=== PATIENT | female | born 1995 | race Caucasian/White ===

== ENCOUNTER 2019-09-19 08:44 | Emergency (ER) | payer OTHER ==
[2019-09-19 08:50] VITALS: BP 116/65
--- NOTE | 2019-09-19 09:42 | ER Document Report ---
ED Medical Screen (RME) - General Chief Complaint: Vaginal Bleeding Stated Complaint: VAGINAL BLEEDING Time Seen by Provider: 09/19/19 09:39 - HPI Notes: 09/19/19 09:42 Patient is a 24-year-old female G1, P0 approximately 6 weeks who presents complaining of lower pelvic cramping and vaginal bleeding that has been present for the past 1 to 2 days. No fever, chest pain, vomiting, diarrhea. I have treated and performed a rapid initial assessment of this patient. A comprehensive ED assessment and evaluation of the patient, analysis of test results and completion of medical decision making process will be conducted by additional ED providers. PHYSICAL EXAMINATION: GENERAL: Well-appearing, well-nourished and in no acute distress. A&Ox4. Answers questions appropriately. - Related Data Allergies/Adverse Reactions: No Known Allergies Allergy (Verified 09/19/19 09:38) Physical Exam - Vital signs Vitals: Temp Pulse Resp BP Pulse Ox 98.3 F 82 18 116/65 99 09/19/19 08:49 09/19/19 08:49 09/19/19 08:49 09/19/19 08:49 09/19/19 08:49 Course - Vital Signs Vital signs: Temp Pulse Resp BP Pulse Ox 98.3 F 82 18 116/65 99 09/19/19 08:49 09/19/19 08:49 09/19/19 08:49 09/19/19 08:49 09/19/19 08:49
[2019-09-19 10:21] LABS: ABSOLUTE EOSINOPHILS # (AUTO) 0.1 10^3/uL (0.0-0.6); ABSOLUTE LYMPHOCYTES (AUTO) 1.7 10^3/uL (0.5-4.7); ABSOLUTE MONOCYTES (AUTO) 0.5 10^3/uL (0.1-1.4); ABSOLUTE NEUT (AUTO) 4.3 10^3/uL (1.7-8.2); BASOPHILS % (AUTO) 0.3 % (0-2); MEAN CORPUSCULAR HEMOGLOBIN 32.5 pg (27.0-33.4); MEAN CORPUSCULAR HGB CONC 35.1 g/dL (32.0-36.0); MEAN CORPUSCULAR VOLUME 92 fl (80-97); MONOCYTES % (AUTO) 8.2 % (3-13); PLATELET COUNT 231 10^3/uL (150-450); RED BLOOD COUNT 4.01 10^6/uL (3.72-5.28); RED CELL DISTRIBUTION WIDTH 11.8 % (11.5-14.0); SEGMENTED NEUTROPHILS % (AUTO) 64.5 % (42-78); TOTAL CELLS COUNTED % (AUTO) 100 %; WHITE BLOOD COUNT 6.6 10^3/uL (4.0-10.5)
[2019-09-19 10:41] LABS: ALBUMIN 4.3 g/dL (3.5-5.0); ALKALINE PHOSPHATASE 35 U/L (38-126); ANION GAP 8 (5-19); ASPARTATE AMINO TRANSFERASE 21 U/L (14-36); BILIRUBIN,DIRECT 0.2 mg/dL (0.0-0.4); BILIRUBIN,TOTAL 0.6 mg/dL (0.2-1.3); BLOOD UREA NITROGEN 10 mg/dL (7-20); CALCIUM 9.4 mg/dL (8.4-10.2); CARBON DIOXIDE 28 mmol/L (22-30); CHLORIDE 101 mmol/L (98-107); POTASSIUM 4.2 mmol/L (3.6-5.0); TOTAL PROTEIN 7.3 g/dL (6.3-8.2)
[2019-09-19 10:44] LABS: APPEARANCE,URINE TURBID; BILIRUBIN,URINE NEGATIVE (NEGATIVE); COLOR,URINE YELLOW; GLUCOSE, URINE NEGATIVE (NEGATIVE); KETONES,URINE NEGATIVE (NEGATIVE); PROTEIN,URINE 30 mg/dL (NEGATIVE); URINE SPECIFIC GRAVITY 1.019; UROBILINOGEN,URINE NEGATIVE mg/dL (<2.0)
[2019-09-19 11:00] LABS: GLUCOSE 58 mg/dL (75-110)
--- NOTE | 2019-09-19 13:10 | RADIOLOGY REPORT (SQ) ---
EXAM DESCRIPTION: U/S OB TRANSVAG W/DOPPLER COMPLETED DATE/TIME: 09/19/2019 10:55 am REASON FOR STUDY: approx 6wks preg, bleeding COMPARISON: None. TECHNIQUE: Transvaginal static and realtime grayscale images acquired of the pelvis. Additional eli cted spectral and color Doppler images recorded. All images stored on PACs. bHCG: Pending. CLINICAL DATES: LMP 08/05/2019. MARLA based on LMP 05/11/2020. EGA based on LMP 6 weeks 3 days. LIMITATIONS: None. FINDINGS: FETUS: Single Living intrauterine . ULTRASOUND EGA: 6 weeks 1 day. ULTRASOUND MARLA: 05/13/2020. CRL: 3.2 mm. FHR: 89 beats per minute. SURVEY: Too early to assess. AMNIOTIC FLUID: Too early to assess. PLACENTA: Too early to assess. SUBCHORIONIC BLEED: No. UTERUS: The uterus measures 8.2 x 4.6 x 3.8 cm. There is an intrauterine gestational sac that contai ns an embryo and a yolk sac. CERVICAL LENGTH: 3.1 cm. Closed. RIGHT ADNEXA: The right ovary measures 2.5 x 2 x 2 cm and on Doppler there is intact arterial inflow and venous outflow within the ovarian stroma. There is no adnexal mass. LEFT ADNEXA: The left ovary measures 2.7 x 1.8 x 1.8 cm on on Doppler there is intact arterial inflow and venous outflow within the ovarian stroma. There is no adnexal mass. FREE FLUID: None. OTHER: No other finding. IMPRESSION: LIVE INTRAUTERINE . EGA 6 weeks 3 days based on LMP with concordant biometric parameters. bradycardia. Consider a short term follow-up ultrasound. Trimester of : First trimester - 0 to 13 weeks. TECHNICAL DOCUMENTATION: JOB ID: [id number] 2010 [place]- All Rights Reserved rev Reading location - IP/workstation name: [email or web address]
[2019-09-19 14:31] LABS: BACTERIA (WET MOUNT) 4+ BACTERIA SEEN; EPITHELIALS (WET MOUNT) 3+ EPITHELIALS SEEN; T.VAGINALIS (WET MOUNT) NO TRICHOMONAS SEEN; WBCS (WET MOUNT) 2+ WBCS SEEN; YEAST (WET MOUNT) NO YEAST SEEN
[2019-09-19] MEDS ORDERED: CEFTRIAXONE INJ 1000 MG VIAL IM ONE (15:03)
[2019-09-19] MEDS ORDERED: AZITHROMYCIN 250 MG TABLET PO ONE (15:03)
[2019-09-19] MEDS ORDERED: LIDOCAINE 1% INJ-PF (10 MG/ML) 30 ML SDV INJ ONE (15:03)
--- NOTE | 2019-09-19 15:09 | ER Document Report ---
ED GI/ - General Chief Complaint: Vaginal Bleeding Stated Complaint: VAGINAL BLEEDING Time Seen by Provider: 09/19/19 09:39 Primary Care Provider: [facility] [Provider Group] - 09/22/19 Notes: Patient is a 24-year-old female who presents to the emergency department with a chief complaint of vaginal bleeding. She is a G1, P0. Her last menstrual cycle was August 05, 2019. She states that she had some clots. States that the bleeding has slowed down. She also admits to having some vaginal discharge about a month ago. Denies any itchiness. - Related Data Allergies/Adverse Reactions: No Known Allergies Allergy (Verified 09/19/19 09:38) Past Medical History - Social History Smoking Status: Never Smoker Family History: Reviewed & Not Pertinent Patient has suicidal ideation: No Patient has homicidal ideation: No Review of Systems - Review of Systems Notes: REVIEW OF SYSTEMS: CONSTITUTIONAL : Denies recent illness. Denies recent unintentional weight loss. Denies fever, chills, or sweats. EENT: Denies eye, ear, throat, or mouth pain, discharge, or symptoms. Denies nasal or sinus congestion. CARDIOVASCULAR: Denies chest pain. RESPIRATORY: Denies shortness of breath, cough, congestion, difficulty breathing, or wheezing. GASTROINTESTINAL: Denies nausea, vomiting, and diarrhea. Denies abdominal pain. Denies constipation. Last BM: GENITOURINARY: Denies difficulty urinating, burning, blood in urine, urgency or frequency. FEMALE GENITOURINARY: See HPI. MUSCULOSKELETAL: Denies neck and back pain. Denies joint pain or swelling. SKIN: Denies rash, itchiness, or lesions HEMATOLOGIC : Denies easy bruising or bleeding. LYMPHATIC: Denies swollen, painful, enlarged glands. NEUROLOGICAL: Denies no numbness or tingling denies weakness. Denies headache. Denies altered mental status. Denies alteration in speech. PSYCHIATRIC: Denies stress, anxiety, alteration in sleep patterns, or depression. All other systems reviewed and negative. Physical Exam - Vital signs Vitals: Temp Pulse Resp BP Pulse Ox 98.3 F 82 18 116/65 99 09/19/19 08:49 09/19/19 08:49 09/19/19 08:49 09/19/19 08:49 09/19/19 08:49 - Notes Notes: PHYSICAL EXAMINATION: GENERAL: Appears well, healthy, well-nourished, no acute distress. HEAD: Normocephalic, atraumatic. EYES: PERRL, conjunctiva normal, all extraocular movements intact, sclera nonicteric ENT: Moist mucous membranes. NECK: Supple, no noticeable swelling, redness, rash. Normal range of motion. LUNGS: Equal breath sounds bilaterally and clear to auscultation. No wheezes rales or rhonchi. CARDIOVASCULAR: S1-S2, regular rate, regular rhythm. Radial pulses 2+, normal. ABDOMEN: Normoactive bowel sounds. Soft, nontender, no guarding, no rebound tenderness, and no masses palpated. EXTREMITIES: Normal strength and range of motion, no pitting or edema. No cyanosis. NEUROLOGICAL: Moves all extremities upon command. Strength 5/5 in all extremities. PSYCH: Normal mood, normal affect. SKIN: Warm, dry. No rash, lesions, ulcerations noted. Normal skin turgor. DATA STEWARD: Small amount of discharge noted to vaginal area. [place] in color. Course - Re-evaluation Re-evalutation: 09/19/19 APARNA Rao at bedside for per physical exam. Speculum exam was not done due to patient having vaginal bleeding. Wet mount was done by myself to ensure proper specimen collection. 09/19/19 Patient's hematology is unremarkable. Her quantitative hCG is 32,133. This is consistent with her 6-week . Her glucose was 58, but she was given crackers and juice. Urinalysis shows a large amount of leukocytes in the urine. Wet mount shows 3+ epithelial cells and 4+ bacteria. She also has 2+ WBCs. No trichomonas or yeast noted. Patient will be empirically treated for gonorrhea and chlamydia with azithromycin and Rocephin. She also be sent home on Keflex and MetroGel to treat bacterial vaginosis. Patient will follow-up with [facility] on Sunday. I will also send her for a quantitative hCG outpatient lab so [facility] can follow-up with her. She is in agreement with this plan. Follow-up precautions were given. Verbal discharge instructions were given to the patient. They verbalized understanding. They are stable for discharge. - Vital Signs Vital signs: Temp Pulse Resp BP Pulse Ox 98.3 F 82 18 116/65 99 09/19/19 08:49 09/19/19 08:49 09/19/19 08:49 09/19/19 08:49 09/19/19 08:49 - Laboratory Result Diagrams: 09/19/19 09:39 09/19/19 09:39 Laboratory results interpreted by me: 09/19/19 09/19/19 09:39 09:49 Creatinine 0.49 L Glucose 58 L Alkaline Phosphatase 35 L Beta HCG, Quant 44401.00 H Urine Protein 30 H Urine Blood LARGE H Leukocyte Esterase Rfl LARGE H Discharge - Discharge Clinical Impression: Vaginal bleeding during , Bacterial vaginosis in Urinary tract infection Qualifiers: Urinary tract infection type: acute cystitis Hematuria presence: without hematuria Qualified Code(s): N30.00 - Acute cystitis without hematuria Condition: Stable Disposition: HOME, SELF-CARE Instructions: Cephalexin ([facility]), Urinary Tract Infection ([facility]) Additional Instructions: You are being treated for bacterial vaginosis, an overgrowth of normal bacteria in the vagina. You are being sent home on an antibiotic called metronidazole. Take exactly as directed. Never drink alcohol while taking this antibiotic. Please return if you develop abdominal pain, fever greater than 101F, some vomiting, or any other symptoms that are concerning to you. Your urine shows findings consistent with a urinary tract infection. Please take all the antibiotics as directed even if your symptoms have improved. Please follow-up with your primary care physician as needed. Return to emergency room if you develop fever >101F, persistent vomiting, become lethargic, have severe pain in your sides, or any other symptoms that are concerning to you. Please follow-up with [facility] on Sunday. Call them today and make an appointment. Please do not have sex, placed anything in your vagina, or use any tampons. You are also being sent with the lab slip. Please return in 48 hours to the outpatient lab in the hospital and have your hCG redrawn. Prescriptions: Metronidazole [Metrogel 0.75% Vaginal Gel] 5 applic VG QHS #5 tube Cephalexin [Keflex] 500 mg PO BID #14 capsule Forms: Follow-Up Laboratory Testing Referrals: [facility] [Provider Group] - 09/22/19
[2019-09-19 15:56] LABS: CHLAM PCR NOT DETECTED (NOT DETECT)
== END 2019-09-19 15:54 | disposition home or self-care (01) ==
LOC: ER 08:44
DX: O23.11 Infections of bladder in pregnancy, first trimester (principal); O23.591 Infection of other part of genital tract in pregnancy, first trimester; B96.89 Other specified bacterial agents as the cause of diseases classified elsewhere; Z3A.01 Less than 8 weeks gestation of pregnancy
CPT/HCPCS: 99284; 96372; 86900; 86901; 36415; 87086; 87210; 84702; 85025; 80053; 81001; 87491; 87591; 76817; 93976; J3490; J0696

== ENCOUNTER → 2019-09-21 | Outpatient (CLI) | payer OTHER | LOC: LAB 11:31 | PROVIDERS: ATTEND Nurse Practitioner | DX: O46.90 Antepartum hemorrhage, unspecified, unspecified trimester (principal) | CPT/HCPCS: 36415; 84702 ==